=== PATIENT | female | born 1955 | race Caucasian/White ===

== ENCOUNTER 2017-04-03 11:00 | Inpatient (IN) | payer BC ==
--- NOTE | 2017-06-13 16:43 | HP ---
HISTORY AND PHYSICAL: DATE OF ADMISSION/SURGERY: 06/19/17 DATE OF OFFICE VISIT: 06/13/17 SURGEON: Uzma Galindo MD * (DICTATED BY PATO CARTER) PROCEDURE: Left total knee arthroplasty. CHIEF COMPLAINT: Left knee pain. HISTORY OF PRESENT ILLNESS: Ms. Starr is a 62-year-old female with complaints of left knee pain secondary to advanced osteoarthritis. She has failed conservative management and has elected to proceed with left total knee arthroplasty, which is scheduled for 06/19/[address] Galindo. PAST MEDICAL HISTORY: Hypertension and diabetes. PAST SURGICAL HISTORY: Hammertoe repair, bladder sling with cystocele repair, D and C, tonsillectomy. CURRENT MEDICATIONS: 1. Losartan potassium 50 mg daily. 2. Metformin 500 mg twice daily. ALLERGIES: To ELAVIL. FAMILY HISTORY: Heart disease, diabetes, cancer. SOCIAL HISTORY: She is a 62-year-old female. She does not smoke. She does not use drugs or tobacco. Uses occasional alcohol. REVIEW OF SYSTEMS: A complete 14-point review of systems was reviewed, was positive for diabetes and occasional palpitations. She denies history of DVT, PE, or anesthesia problems. PHYSICAL EXAMINATION GENERAL: Well developed, well nourished, in no acute distress. She is alert and oriented x3, pleasant mood, and appropriate affect. VITAL SIGNS: She stands 5 feet 1 inch tall, weighs 182 pounds. Her blood pressure 127/78, heart rate 75. HEENT: Normocephalic, atraumatic. NECK: Supple. No palpable lymph nodes. PULMONARY: Lungs are clear to auscultation bilaterally. CARDIAC: Regular rate and rhythm. Strong S1 and S2. ABDOMEN: Soft, nontender, and nondistended. MUSCULOSKELETAL: Left lower extremity, the skin is intact. There are no open wounds or abrasions. There is a moderate joint effusion. 5 to 135 degrees of flexion. 2+ dorsalis pedis pulses. Her lower extremity muscle group strengths are intact at 5/5. NEUROLOGIC: Cranial nerves II through XII are intact. ASSESSMENT AND PLAN: Ms. Starr is a 62-year-old female with complaints of left knee pain secondary to advanced osteoarthritis. She has failed conservative management and has elected to proceed with left knee arthroscopy, which is scheduled for 06/19/[address] Galindo discussed the risks and benefits of the surgery at today's visit and all of her questions were answered. Coumadin and Percocet were sent to her pharmacy for postoperative pain control and DVT prophylaxis. She will see Dr. Galindo back 2 weeks after the surgery. PAOT CARTER [id number]/[facility] #: [id number] ANILA
[2017-06-18] MEDS ORDERED: Buffered Lidocaine 0.9% SYRIN* 5 ML/SYR SYRINGE INTRADERM ONE (11:25)
[2017-06-19] MEDS ORDERED: Famotidine IV* 10 MG/ML 2 ML (20 mg) IV ONE (06:00)
[2017-06-19] MEDS ORDERED: Gabapentin CAP(*) 300 MG PO ONE (08:28)
[2017-06-19] MEDS ORDERED: Famotidine IV* 10 MG/ML 2 ML (20 mg) ONE (08:49)
[2017-06-19] MEDS ORDERED: ceFAZolin 2 GM PREMIX (*) 2 GM/50 ML BAG IVPB ONE (08:49)
[2017-06-19] MEDS ORDERED: Gabapentin CAP(*) 300 MG ONE (08:49)
[2017-06-19] MEDS ORDERED: Buffered Lidocaine 0.9% SYRIN* 5 ML/SYR SYRINGE ONE (08:49)
[2017-06-19] MEDS ORDERED: Midazolam* 1 MG/ML 5 ML VIAL (5 MG) ONE (09:17)
[2017-06-19] MEDS ORDERED: fentaNYL* 50 MCG/ML 2 ML VIAL (100 MCG VIAL) ONE (09:17)
[2017-06-19] MEDS ORDERED: Lidocaine 2% PF * 5 ML VIAL ONE ×2 (09:19→11:23)
[2017-06-19] MEDS ORDERED: Ondansetron INJ* 2 MG/ML VIAL ONE (09:19)
[2017-06-19] MEDS ORDERED: Propofol* 10 MG/ML 20 ML BTL IV PUSH ONE ×2 (09:19→13:25)
[2017-06-19] MEDS ORDERED: Dexamethasone IV* 4 MG/ML 1 ML (4 MG) ONE (09:19)
[2017-06-19] MEDS ORDERED: DiMENhydriNATE IV* 50 MG/ML VIAL ONE ×2 (09:19→16:03)
[2017-06-19] MEDS ORDERED: Ketorolac INJ* 30 MG/ML 1 ML VIAL ONE (09:19)
[2017-06-19] MEDS ORDERED: KETAMINE HCL* 50 MG/ML 10 ML VIAL ONE (09:19)
[2017-06-19] MEDS ORDERED: ROPIVACAINE 5 MG/ML 30 ML BTL (0.5%) ONE (11:23)
[2017-06-19] MEDS ORDERED: Morphine PF AMP (0.5MG/ML)* 5 MG/10 ML AMP ONE (11:45)
[2017-06-19] MEDS ORDERED: Midazolam* 1 MG/ML 2 ML VIAL (2 MG) ONE (11:46)
[2017-06-19] MEDS ORDERED: Glycopyrrolate IV* 0.2 MG/ML 1 ML VIAL ONE (12:06)
[2017-06-19] MEDS ORDERED: oxyCODONE/Acetamin 5/325 MG* TAB PO PRN ×2 (12:55→12:57)
[2017-06-19] MEDS ORDERED: HYDROmorphone INJ* 1 MG/ML CARPUJECT SYRINGE IV PRN (12:55)
[2017-06-19] MEDS ORDERED: DiMENhydriNATE IV* 50 MG/ML VIAL IV PUSH PRN (12:55)
[2017-06-19] MEDS ORDERED: Gabapentin CAP(*) 100 MG PO ONE (12:56)
[2017-06-19] MEDS ORDERED: Naloxone* 0.4 MG/ML 1 ML VIAL IV PRN (12:57)
[2017-06-19] MEDS ORDERED: Nalbuphine* 20 MG/ML 1 ML VIAL IV PRN (12:57)
[2017-06-19] MEDS ORDERED: Ondansetron INJ* 2 MG/ML VIAL IV PRN (12:57)
[2017-06-19] MEDS ORDERED: Polyethylene Glycol 3350* 17 GM PACKET PO PRN (13:05)
[2017-06-19] MEDS ORDERED: Magnesium Hydroxide LIQ* 30 ML UDC PO PRN (13:05)
[2017-06-19] MEDS ORDERED: Bisacodyl SUPP* 10 MG SUPP PR PRN (13:05)
[2017-06-19] MEDS ORDERED: Acetaminophen TAB* 325 MG PO PRN (13:05)
[2017-06-19] MEDS ORDERED: Cyclobenzaprine TAB* 10 MG PO PRN (13:09)
[2017-06-19] MEDS ORDERED: Gabapentin CAP(*) 100 MG ONE (14:46)
--- NOTE | 2017-06-19 15:36 | RAD ---
Indication: Left total knee replacement. 2 views of left knee demonstrates bipolar knee arthroplasty in satisfactory position. Drainage catheter in place. IMPRESSION: Left knee replacement in satisfactory position.
--- NOTE | 2017-06-19 15:49 | CONSULT ---
Subjective Date of Service: 06/19/17 Interval History: 62 yo F with hx of HTN, DM, BESSIE on CPAP seen in PACU after L TKA. Has had ongoing/worsening arthritis and underwent TKA by Dr. Galindo. Otherwise has been stable lately, BPs and DM has been well controlled. She does state that she had a tick bite about 1 week ago. She says she believes it was likely a deer tick and thinks it was attached for about 24 hours. Has not noted a target lesion around the bite, just a small amount of erythema. Family History: Findings - DM, cancer, CAD Social History: Findings - No smoking, occasional EtOH, rare MJ Past Medical History: Findings - HTN, DM, BESSIE Review of Systems - Measurements Intake and Output: Intake and Output Last 24 Hours 06/17/17 06/18/17 06/19/17 06/20/17 06:59 06:59 06:59 06:59 Intake Total 1800 Output Total 150 Balance 1650 Weight 83.461 kg Intake: IV Fluids 1800 LR 1800 Output: Estimated Blood Loss 150 - Review of Systems Constitutional Symptoms: Negative: Fever Dermatology: Positive: Other - tick bite HEENT: Positive: Normal Eyes: Positive: Normal Thyroid: Positive: Normal Pulmonary: Positive: Normal Cardiology: Positive: Normal Gastroenterology: Positive: Normal Musculoskeletal: Positive: Joint Pain Endocrinology: Positive: Normal Neurology: Positive: Normal Psychiatry: Positive: Normal Objective Active Medications: Acetaminophen (Tylenol Tab*) 650 mg PO Q4H PRN PRN Reason: PAIN OR TEMPERATURE Alprazolam (Xanax Tab*) 0.125 mg PO Q6H PRN PRN Reason: ANXIETY Bisacodyl (Dulcolax Supp*) 10 mg [place] DAILY PRN PRN Reason: constipation Cyclobenzaprine HCl (Flexeril Tab*) 10 mg PO BID PRN PRN Reason: LEG CRAMPS Dimenhydrinate (Dramamine Iv*) 12.5 mg IV PUSH ONCE PRN PRN Reason: NAUSEA/VOMITING Stop: 06/19/17 12:56 Diphenhydramine HCl (Benadryl Iv*) 12.5 mg IV Q6H PRN PRN Reason: PRURITIS Docusate Sodium (Colace Cap*) 100 mg PO BID TOPHER Enoxaparin Sodium (Lovenox(*)) 40 mg SUBCUT Q24H TOPHER Famotidine (Pepcid Iv*) 20 mg IV ONCE ONE Stop: 06/19/17 06:01 Last Admin: 06/19/17 10:09 Dose: 20 mg Gabapentin (Neurontin Cap(*)) 300 mg PO ONCE ONE Stop: 06/19/17 08:29 Last Admin: 06/19/17 09:35 Dose: 300 mg Gabapentin (Neurontin Cap(*)) 100 mg PO ONCE ONE Stop: 06/19/17 12:57 Last Admin: 06/19/17 15:16 Dose: 100 mg Hydromorphone HCl (Dilaudid Inj*) 0.2 mg IV Q5M PRN PRN Reason: PAIN - SEVERE Stop: 06/19/17 13:16 Lactated Ringer's (Lactated Ringers 1000 Ml Bag*) 1,000 mls @ 125 mls/hr IV PER RATE [facility] Last Admin: 06/19/17 10:09 Dose: 125 mls/hr Cefazolin Sodium 1 gm/ Sodium (Chloride) 50 mls @ 200 mls/hr IVPB Q8H [facility] Stop: 06/20/17 06:14 Lactated Ringer's (Lactated Ringers 1000 Ml Bag*) 1,000 mls @ 100 mls/hr IV PER RATE [facility] Ibuprofen (Motrin Tab*) 600 mg PO Q6H [facility] Lactulose (Lactulose*) 30 ml PO Q6H PRN PRN Reason: constipation Lidocaine/Sodium Bicarbonate (Buffered Lidocaine 0.9% Syrin*) 0.2 ml INTRADERM ONCE ONE Stop: 06/18/17 11:26 Last Admin: 06/19/17 10:09 Dose: 0.2 ml Magnesium Hydroxide (Milk Of Magnesia Liq*) 30 ml PO Q6H PRN PRN Reason: constipation Metformin HCl (Glucophage*) 500 mg PO QAM [facility] Morphine Sulfate (Morphine Inj (Syringe)*) 2 mg IV Q2H PRN PRN Reason: PAIN Nalbuphine HCl (Nubain*) 5 mg IV Q6H PRN PRN Reason: pruritis Naloxone HCl (Narcan*) 0.08 mg IV Q2M PRN PRN Reason: respiratory depression Ondansetron HCl (Zofran Inj*) 4 mg IV Q6H PRN PRN Reason: Nausea/Vomiting Ondansetron HCl (Zofran Inj*) 4 mg IV Q6H PRN PRN Reason: nausea Ondansetron HCl (Zofran Tab*) 4 mg PO Q6H PRN PRN Reason: NAUSEA Oxycodone HCl (Roxycodone Tab*) 10 mg PO Q4H PRN PRN Reason: SEVERE PAIN Oxycodone/Acetaminophen (Percocet 5/325 Tab*) 1 tab PO ONCE PRN PRN Reason: PAIN - MODERATE Stop: 06/20/17 12:56 Oxycodone/Acetaminophen (Percocet 5/325 Tab*) 1 tab PO Q4H PRN PRN Reason: Moderate Pain Oxycodone/Acetaminophen (Percocet 5/325 Tab*) 1 tab PO Q3H PRN PRN Reason: PAIN - MODERATE Oxycodone/Acetaminophen (Percocet 5/325 Tab*) 2 tab PO Q3H PRN PRN Reason: PAIN - MODERATE Polyethylene Glycol/Electrolytes (Miralax*) 17 gm PO DAILY PRN PRN Reason: Constipation Warfarin Sodium (Coumadin Tab(*)) 6 mg PO ONCE@1700 ONE PRN Reason: Protocol Stop: 06/19/17 17:01 Vital Signs 06/19/17 06/19/17 06/19/17 09:17 14:35 14:40 Temperature 97.0 F 97.3 F Pulse Rate 71 73 73 Respiratory 16 16 14 Rate Blood Pressure 130/78 101/65 94/46 (mmHg) O2 Sat by Pulse 98 96 100 Oximetry 06/19/17 06/19/17 06/19/17 14:45 15:00 15:15 Temperature Pulse Rate 64 61 64 Respiratory 16 18 16 Rate Blood Pressure 97/68 97/67 97/71 (mmHg) O2 Sat by Pulse 97 98 100 Oximetry 06/19/17 15:30 Temperature Pulse Rate 59 Respiratory 16 Rate Blood Pressure 111/75 (mmHg) O2 Sat by Pulse 99 Oximetry Oxygen Devices in Use Now: Nasal Cannula Appearance: Middle-aged F, laying in bed in NAD Eyes: No Scleral Icterus Ears/Nose/Mouth/Throat: - - Dry MM Neck: NL Appearance and Movements; NL JVP Respiratory: Symmetrical Chest Expansion and Respiratory Effort, - - Some mild ronchi in bases B/L Cardiovascular: NL Sounds; No Murmurs; No JVD, RRR Abdominal: NL Sounds; No Tenderness; No Distention Lymphatic: No Cervical Adenopathy Extremities: No Edema, - - L knee with dressing in place Skin: - - Small bite tc on R hip, 2-3 mm surrounding erythema, no target lesion Neurological: Alert and Oriented x 3 Lines/Tubes/Other Access: Clean, Dry and Intact Tavarez Assessment/Plan - Billing 62 yo F with hx of HTN, DM, BESSIE s/p L TKA by Dr. Galindo on 06/19/17 1) S/P L TKA - management as per Ortho - coumadin ordered 2) Tick Bite - spoke briefly with Dr. Brown. No further work-up needed at this time, can f /u with PCP regarding serologies in the upcoming weeks 3) HTN - BPs soft in PACU, hold AM Losartan for now 4) DM - well controlled, HbA1c < 6% - continue home Metformin 5) BESSIE - CPAP qhs 6) DVT PPx - Lovenox/Coumadin Thank you for this consult, we will continue to follow
[2017-06-19] MEDS: Ibuprofen TAB* 600 MG PO SCH ×2 (15:52→18:37)
[2017-06-19] MEDS ORDERED: Warfarin TAB(*) 6 MG PO ONE (17:00)
[2017-06-19] MEDS: ceFAZolin 1 GM VIAL(*) 1 GM in NS 0.9% 50 ML* 50 ML IVPB SCH (19:40)
[2017-06-19] MEDS: Docusate CAP* 100 MG PO SCH (20:54)
[2017-06-20] MEDS: Ibuprofen TAB* 600 MG PO SCH (00:51)
[2017-06-20] MEDS: ceFAZolin 1 GM VIAL(*) 1 GM in NS 0.9% 50 ML* 50 ML IVPB SCH ×2 (03:21→11:39)
[2017-06-20] MEDS ORDERED: oxyCODONE/Acetamin 5/325 MG* TAB PO PRN (04:48)
[2017-06-20] MEDS ORDERED: Morphine INJ* 2 MG/ML 1 ML SYRINGE (TWO MG - NEW SYRINGE VERSION) IV PRN (04:48)
[2017-06-20] MEDS ORDERED: Ondansetron TAB* 4 MG PO PRN (04:48)
--- NOTE | 2017-06-20 04:58 | OP ---
OPERATIVE REPORT: DATE OF OPERATION: 06/19/17 DATE OF : 57 ATTENDING SURGEON: Uzma Galindo MD PLANING MACHINE OPERATOR: PATO Higuera Carl did help throughout the procedure with preparation of the leg, wound retraction, nikolay pulation of the knee, and wound closure. ANESTHESIOLOGIST: Dr. Cobos. ANESTHESIA: Spinal. PRE-OP DIAGNOSIS: Severe end-stage degenerative osteoarthritis of the left knee joint. POST-OP DIAGNOSIS: Severe end-stage degenerative osteoarthritis of the left knee joint. OPERATIVE PROCEDURE: Left total knee arthroplasty. BRIEF HISTORY/INDICATIONS: Ms. Starr is a 62-year-old female with years of increasingly severe le ft knee pain. She failed conservative treatment with anti- inflammatories, pain medications, intraa rticular injections, and physical therapy. Due to decreased quality of life and continued pain, she elected to undergo left total knee arthroplasty. Informed consent was obtained from the patient. She understood the risks of the procedure, included , but were not limited to bleeding, infection, damage to nearby structures, continued pain, need for further surgery, intraoperative fracture, nerve palsy, hardware failure or loosening, knee stiffnes s, loss of motion, stroke, heart attack, blood clot, and . She wished to proceed. TOURNIQUET TIME: 49 minutes. COMPLICATIONS: None. ESTIMATED BLOOD LOSS: 200 cc. SPECIMENS: Bone and cartilage from the left knee joint sent to Pathology. HARDWARE USED: This is cemented [employer] total knee hardware. Two packages of Simplex bone cement. For the femur, a size 5 left posterior stabilized Oxinium femoral component. For the tibi a, size 4 left tibial baseplate. For the insert, a 9-mm posterior stabilized articular insert size 3-4. For the patella, 32 mm 3-peg all-poly patella. INTRAOPERATIVE FINDINGS: Intraoperatively, the patient was noted to have tricompartmental degenerat connie osteoarthritis with full thickness cartilage loss. She had extensive osteophyte formation. She had 15 degree flexion contracture to begin the case. DESCRIPTION OF PROCEDURE: Ms. Starr was identified in the preanesthesia unit. Her left lower extr emity was marked as the correct operative side. Informed consent was signed and placed in the chart . The patient was taken to the operating room and placed under spinal anesthesia. A Tavarez catheter was placed. Tourniquet was placed on the left thigh. Left lower extremity was prepped and draped in the usual sterile fashion. Preop time-out was made to correctly identify the patient's side and site. Appropriate perioperative antibiotics were given within 1 hour of incision. Tourniquet was inflated until the tourniquet time for this procedure was 49 minutes. A midline inci luke of 12-cm was made with a 10 blade. This was carried down to the extensor mechanism. A new 10 blade was used to make a standard medial parapatellar arthrotomy. Electrocautery was used to subper iosteally elevate soft tissue of the superomedial tibia to the mid sagittal plane. The knee was flex ed up. There was no ACL or anterior horn of the lateral meniscus. A drill was used to enter the dis ladarius femur. Intramedullary distal femoral cutting guide was pinned on the distal femur. Oscillating saw was used to make the distal femoral cut. External rotational guide was pinned on the distal fem ur. Distal femur was sized to a size 5. Size 5 multi-cutting jig was pinned on the distal femur. Oscillating saw was used to make the appropriate 4 chamfer cuts. The PCL was completely released an d the tibia was subluxed anteriorly. Extramedullary tibial cutting guide was pinned on the proximal tibia. Oscillating saw was used to m norma a proximal tibial cut perpendicular to the mechanical axis of the tibia. The bone was carefully removed. The knee was brought out into full extension. The spacer block had excellent fit with th e knee in full extension. Medial and lateral ligaments were well balanced. Flexion and extension ga ps were well balanced. The knee was flexed up. Tibial tray and drop lily once again confirmed satisfactory proximal tibial cut. Lamina sound art instructor was placed both medially and laterally. Any remaining meniscus was carefully removed using electrocautery. Posterior osteophytes were removed using curved osteotome and curette . A size 5 left femoral trial was impacted on to the distal femur and had good fit. The box for the po sterior stabilized implant was prepared using a reamer and box cut osteotome. Trial size 4 tibia an d 9-mm insert trial was placed and the knee was taken through a range of motion. The knee had full extension to 130 degrees of flexion. Patellofemoral tracking was satisfactory. The patella was everted. A 9-mm subpatellar bone and cartilage was carefully removed using an oscil lating saw. The patella was sized to a size 32. The 3 peg holes were drilled through the size 32 g uide. A 32 trial patella was placed and the knee was taken through a range of motion. There was sa tisfactory patellofemoral tracking. All trials were carefully removed. The tibia was subluxed anteriorly and sized to a size 4. Proxim al tibia was prepared using a size 4 keel punch. All bony cut surfaces were copiously irrigated wit h sterile saline and dried. Final implants were cemented into place, starting with the tibia, follo wed by the femur, and lastly the patella. A 9-mm insert trial was placed and the knee was taken out into full extension. Tourniquet was turned down at 49 minutes. The knee was copiously irrigated w ith sterile saline. Electrocautery was used to obtain meticulous hemostasis. Once the cement had fully cured, the insert trial was removed. Any excess cement was carefully marcus daniella from around the implants and capsule. Final insert chosen was a 9-mm size 3-4 posterior stabili zed articular insert. This was locked into position on the tibial tray without difficulty. Stabili ty of the insert was checked and rechecked and noted to be stable. The extensor mechanism was close d using interrupted #1 Vicryls over a medium Hemovac drain. The rest of the incision was closed in a layered fashion using 0 and 2-0 Vicryls. Skin was closed using running 3-0 nylon suture. Sterile Xeroform, 4x4s, and Webril were used to cover the incision. Rhett wrap and cold pack were placed ove r this. The patient's anesthesia was reversed without difficulty. She was taken to the PACU in stab le condition. Intended weightbearing will be weightbearing as tolerated. Intended DVT prophylaxis will be Coumadin with a Lovenox bridge. [id number]/[facility] #: [id number]
[2017-06-20] MEDS: diPHENhydraMINE IV* 50 MG/ML 1 ml VIAL (BENADRYL) IV PRN ×2 (05:45→11:28)
[2017-06-20 07:51] LABS: Hematocrit 31 % (35-47); Hemoglobin 10.8 g/dl (12.0-16.0)
[2017-06-20 08:11] LABS: BUN/Creatinine Ratio 19.1 (8-20); Calcium 8.2 mg/dL (8.6-10.3); EGFR African American 113.1 (>60); Potassium 3.6 mmol/L (3.5-5.0)
[2017-06-20] MEDS: oxyCODONE TAB* 5 MG TAB PO PRN ×2 (08:17→15:15)
[2017-06-20] MEDS: metFORMIN* 500 MG TAB PO SCH (08:18)
[2017-06-20] MEDS: Docusate CAP* 100 MG PO SCH ×2 (08:18→21:34)
[2017-06-20] MEDS ORDERED: Losartan TAB* 25 MG PO SCH (09:00)
--- NOTE | 2017-06-20 09:57 | PN ---
Progress Note - Progress Note Date of Service: 06/20/17 SOAP: Subjective: []Patient seen OOB in chair, pain well managed. Denies c/o SOB, CP or dizziness. Objective: [] Vital Signs Temp 98.3 F 06/20/17 08:10 Pulse 82 06/20/17 08:10 Resp 16 06/20/17 08:17 BP 108/57 06/20/17 08:10 Pulse Ox 92 06/20/17 08:10 Intake & Output 06/19/17 06/20/17 06/20/17 18:59 06:59 18:59 Intake Total 2100 1410 1785 Output Total 500 1075 550 Balance 1683 193 5922 Weight 184 lb Intake: IV Fluids 2100 850 1370 LR 2100 850 1370 IVPB 55 LR 55 Oral 560 360 Output: Tavarez 350 1075 550 Estimated Blood Loss 150 Other: # Bowel Movements 0 Laboratory Results - last 24 hr 06/19/17 06/20/17 06/20/17 15:23 07:26 07:26 Hgb 10.8 L Hct 31 L INR (Anticoag Therapy) 1.06 Sodium Potassium Chloride Carbon Dioxide Anion Gap BUN Creatinine Est GFR ( Amer) Est GFR (Non-Af Amer) BUN/Creatinine Ratio Glucose POC Glucose (mg/dL) 124 H Calcium 06/20/17 07:26 Hgb Hct INR (Anticoag Therapy) Sodium 137 Potassium 3.6 Chloride 104 Carbon Dioxide 27 Anion Gap 6 BUN 13 Creatinine 0.68 Est GFR ( Amer) 113.1 Est GFR (Non-Af Amer) 88.0 BUN/Creatinine Ratio 19.1 Glucose 164 H POC Glucose (mg/dL) Calcium 8.2 L Left knee dressing dry and intact hemovac drain discontinued this am by Dr. Galindo without complication calf NT and soft NVI distally, +DF/PF left ankle Assessment: []s/p Left total knee arthroplasty POD #1 Plan: []PT/OT WBAT LLE Coumadin with Lovenox bridge- 8mg today Home with VNS in 1-2 days
[2017-06-20] MEDS: oxyCODONE/Acetamin 5/325 MG* TAB PO PRN ×3 (11:32→21:28)
--- NOTE | 2017-06-20 12:02 | PN ---
Subjective Date of Service: 06/20/17 Interval History: Patient seen this morning. Feeling "OK" overall, pain in the knee just now, got pain medications, trying to stay ahead. Hypotensive overnight, responded to IVF , denies light-headedness/dizziness. Good PO intake. Tavarez removed, no urine yet , passing gas, no BM. Reports slight numbness/tingling in L toes Family History: Unchanged from Admission Social History: Unchanged from Admission Past Medical History: Unchanged from Admission Objective Active Medications: Acetaminophen (Tylenol Tab*) 650 mg PO Q4H PRN Alprazolam (Xanax Tab*) 0.125 mg PO Q6H PRN Bisacodyl (Dulcolax Supp*) 10 mg [place] DAILY PRN Cyclobenzaprine HCl (Flexeril Tab*) 10 mg PO BID PRN Diphenhydramine HCl (Benadryl Iv*) 12.5 mg IV Q6H PRN Docusate Sodium (Colace Cap*) 100 mg PO BID TOPEHR Enoxaparin Sodium (Lovenox(*)) 40 mg SUBCUT Q24H [facility]HER Cefazolin Sodium 1 gm/ Sodium (Chloride) 50 mls @ 200 mls/hr IVPB Q8H [facility] Lactated Ringer's (Lactated Ringers 1000 Ml Bag*) 1,000 mls @ 100 mls/hr IV PER RATE [facility] Lactulose (Lactulose*) 30 ml PO Q6H PRN Magnesium Hydroxide (Milk Of Magnesia Liq*) 30 ml PO Q6H PRN Metformin HCl (Glucophage*) 500 mg PO QAM [facility] Morphine Sulfate (Morphine Inj (Syringe)*) 2 mg IV Q2H PRN Ondansetron HCl (Zofran Inj*) 4 mg IV Q6H PRN Ondansetron HCl (Zofran Tab*) 4 mg PO Q6H PRN Oxycodone HCl (Roxycodone Tab*) 10 mg PO Q4H PRN Oxycodone/Acetaminophen (Percocet 5/325 Tab*) 1 tab PO ONCE PRN Oxycodone/Acetaminophen (Percocet 5/325 Tab*) 1 tab PO Q3H PRN Oxycodone/Acetaminophen (Percocet 5/325 Tab*) 2 tab PO Q3H PRN Polyethylene Glycol/Electrolytes (Miralax*) 17 gm PO DAILY PRN Warfarin Sodium (Coumadin Tab(*)) 8 mg PO ONCE@1700 ONE Vital Signs 06/19/17 06/19/17 06/19/17 14:35 14:40 14:45 Temperature 97.3 F Pulse Rate 73 73 64 Respiratory 16 14 16 Rate Blood Pressure 101/65 94/46 97/68 (mmHg) O2 Sat by Pulse 96 100 97 Oximetry 06/20/17 06/20/17 06/20/17 05:38 05:45 05:55 Temperature Pulse Rate Respiratory 18 16 Rate Blood Pressure 84/54 (mmHg) O2 Sat by Pulse Oximetry 06/20/17 06/20/17 06/20/17 08:10 08:17 10:17 Temperature 98.3 F Pulse Rate 82 Respiratory 16 16 18 Rate Blood Pressure 108/57 (mmHg) O2 Sat by Pulse 92 Oximetry Oxygen Devices in Use Now: None Appearance: Middle-aged, obese F, laying in bed in NAD Eyes: No Scleral Icterus Ears/Nose/Mouth/Throat: Mucous Membranes Moist Neck: NL Appearance and Movements; NL JVP Respiratory: Symmetrical Chest Expansion and Respiratory Effort, Clear to Auscultation Cardiovascular: NL Sounds; No Murmurs; No JVD, RRR Abdominal: NL Sounds; No Tenderness; No Distention Lymphatic: No Cervical Adenopathy Extremities: - - L knee with dressing/cryounit in place Skin: No Rash or Ulcers Neurological: Alert and Oriented x 3 Result Diagrams: 06/20/17 07:26 06/20/17 07:26 Assess/Plan/Problems-Billing 62 yo F with hx of HTN, DM, BESSIE s/p L TKA by Dr. Galindo on 06/19/17 1) S/P L TKA - management as per Ortho - coumadin ordered 2) Tick Bite - spoke briefly with Dr. Brown. No further work-up needed at this time, can f /u with PCP regarding serologies in the upcoming weeks 3) HTN - BPs soft overnight, improved with IVF/bolus - hold home anti-HTN meds, continue IVF as ordered 4) DM - well controlled, HbA1c < 6% - continue home Metformin 5) BESSIE - CPAP qhs 6) DVT PPx - Lovenox/Coumadin Thank you for this consult, we will continue to follow
[2017-06-20] MEDS: Enoxaparin(*) 40 MG/0.4 ML SYR SUBCUT SCH (13:00)
[2017-06-20] MEDS ORDERED: Warfarin TAB(*) 4 MG PO ONE (17:00)
[2017-06-20] MEDS: Ondansetron INJ* 2 MG/ML VIAL IV PRN (19:09)
[2017-06-21] MEDS: oxyCODONE/Acetamin 5/325 MG* TAB PO PRN ×2 (01:47→08:10)
[2017-06-21] MEDS: metFORMIN* 500 MG TAB PO SCH (08:09)
[2017-06-21] MEDS: Docusate CAP* 100 MG PO SCH ×2 (08:10→21:10)
[2017-06-21] MEDS ORDERED: Calcium Carbonate CHEW TAB* 500 MG (TUMS) PO PRN (08:16)
[2017-06-21] MEDS ORDERED: Calcium Carbonate CHEW TAB* 500 MG (TUMS) ONE (08:22)
[2017-06-21] MEDS: ALPRAZolam TAB* 0.25 MG PO PRN (08:53)
[2017-06-21 09:16] LABS: Hematocrit 32 % (35-47); Hemoglobin 11.4 g/dl (12.0-16.0)
[2017-06-21] MEDS: Ondansetron INJ* 2 MG/ML VIAL IV PRN (09:22)
--- NOTE | 2017-06-21 10:55 | PN ---
Subjective Date of Service: 06/21/17 Interval History: pt is mildly nauseated today, otherwise n o complaints Family History: Unchanged from Admission Social History: Unchanged from Admission Past Medical History: Unchanged from Admission Objective Active Medications: Acetaminophen (Tylenol Tab*) 650 mg PO Q4H PRN PRN Reason: PAIN OR TEMPERATURE Alprazolam (Xanax Tab*) 0.125 mg PO Q6H PRN PRN Reason: ANXIETY Last Admin: 06/21/17 08:53 Dose: 0.125 mg Bisacodyl (Dulcolax Supp*) 10 mg NE DAILY PRN PRN Reason: constipation Calcium Carbonate (Tums*) 500 mg PO Q4H PRN PRN Reason: HEARTBURN Cyclobenzaprine HCl (Flexeril Tab*) 10 mg PO BID PRN PRN Reason: LEG CRAMPS Diphenhydramine HCl (Benadryl Iv*) 12.5 mg IV Q6H PRN PRN Reason: PRURITIS Last Admin: 06/20/17 11:28 Dose: 12.5 mg Docusate Sodium (Colace Cap*) 100 mg PO BID [facility] Last Admin: 06/21/17 08:10 Dose: 100 mg Enoxaparin Sodium (Lovenox(*)) 40 mg SUBCUT Q24H [facility] Last Admin: 06/20/17 13:00 Dose: 40 mg Lactated Ringer's (Lactated Ringers 1000 Ml Bag*) 1,000 mls @ 100 mls/hr IV PER RATE [facility] Last Admin: 06/20/17 19:00 Dose: 100 mls/hr Lactulose (Lactulose*) 30 ml PO Q6H PRN PRN Reason: constipation Last Admin: 06/21/17 08:10 Dose: 30 ml Magnesium Hydroxide (Milk Of Magnesia Liq*) 30 ml PO Q6H PRN PRN Reason: constipation Metformin HCl (Glucophage*) 500 mg PO QAM [facility] Last Admin: 06/21/17 08:09 Dose: 500 mg Morphine Sulfate (Morphine Inj (Syringe)*) 2 mg IV Q2H PRN PRN Reason: PAIN Ondansetron HCl (Zofran Inj*) 4 mg IV Q6H PRN PRN Reason: nausea Last Admin: 06/21/17 09:22 Dose: 4 mg Ondansetron HCl (Zofran Tab*) 4 mg PO Q6H PRN PRN Reason: NAUSEA Oxycodone HCl (Roxycodone Tab*) 10 mg PO Q4H PRN PRN Reason: SEVERE PAIN Last Admin: 06/20/17 15:15 Dose: 10 mg Polyethylene Glycol/Electrolytes (Miralax*) 17 gm PO DAILY PRN PRN Reason: Constipation Tramadol HCl (Ultram*) 50 mg PO Q6H PRN PRN Reason: mild to moderate pain Vital Signs 06/20/17 06/20/17 06/20/17 11:18 11:28 11:32 Temperature 98.6 F Pulse Rate 79 Respiratory 16 18 18 Rate Blood Pressure 146/70 (mmHg) O2 Sat by Pulse 99 Oximetry 06/20/17 06/20/17 06/20/17 12:28 13:32 15:15 Temperature Pulse Rate Respiratory 18 18 18 Rate Blood Pressure (mmHg) O2 Sat by Pulse Oximetry 06/20/17 06/20/17 06/20/17 15:26 17:11 17:14 Temperature 99.4 F Pulse Rate 85 Respiratory 16 18 18 Rate Blood Pressure 160/70 (mmHg) O2 Sat by Pulse 94 Oximetry 06/20/17 06/20/17 06/20/17 19:01 19:14 19:46 Temperature Pulse Rate 86 Respiratory 20 20 Rate Blood Pressure 163/82 (mmHg) O2 Sat by Pulse 95 Oximetry 06/20/17 06/20/17 06/20/17 19:57 21:28 23:28 Temperature 98.1 F Pulse Rate Respiratory 18 18 Rate Blood Pressure (mmHg) O2 Sat by Pulse Oximetry 06/20/17 06/21/17 06/21/17 23:58 01:47 03:47 Temperature 98.5 F Pulse Rate 86 Respiratory 16 18 18 Rate Blood Pressure 160/81 (mmHg) O2 Sat by Pulse 99 Oximetry 06/21/17 06/21/17 06/21/17 03:55 05:30 07:35 Temperature 98.6 F 98.3 F Pulse Rate 91 85 Respiratory 16 20 Rate Blood Pressure 141/65 147/77 (mmHg) O2 Sat by Pulse 93 99 97 Oximetry 06/21/17 06/21/17 06/21/17 07:55 08:10 08:49 Temperature Pulse Rate 85 Respiratory 20 18 Rate Blood Pressure 157/75 (mmHg) O2 Sat by Pulse 97 100 Oximetry 06/21/17 06/21/17 08:53 09:45 Temperature Pulse Rate Respiratory 20 18 Rate Blood Pressure (mmHg) O2 Sat by Pulse Oximetry Oxygen Devices in Use Now: None Appearance: 62 yo F in nAD, aAOx3 Eyes: No Scleral Icterus, PERRLA Ears/Nose/Mouth/Throat: NL Teeth, Lips, Gums, Mucous Membranes Moist Neck: NL Appearance and Movements; NL JVP, Trachea Midline Respiratory: Symmetrical Chest Expansion and Respiratory Effort, Clear to Auscultation Cardiovascular: NL Sounds; No Murmurs; No JVD, RRR Abdominal: NL Sounds; No Tenderness; No Distention Lymphatic: No Cervical Adenopathy Extremities: No Edema, No Clubbing, Cyanosis Skin: No Nodules or Sclerosis, - - left post op knee in cryo unit, dressings not removed Neurological: Alert and Oriented x 3, NL Muscle Strength and Tone Result Diagrams: 06/21/17 08:34 06/20/17 07:26 Assess/Plan/Problems-Billing 62 yo F with hx of HTN, DM, BESSIE s/p L TKA by Dr. Galindo on 06/19/17 1) S/P L TKA - management as per Ortho - coumadin ordered 2) Tick Bite - will obtain Lyme serology today, to f/u when it comes back with PCP 3) HTN - SBP in 150's today-will restart Cozaar - hold home anti-HTN meds, continue IVF as ordered 4) DM - well controlled, HbA1c < 6% - continue home Metformin 5) BESSIE - CPAP qhs 6) DVT PPx - Lovenox/Coumadin Thank you for this consult, will sign off. Please call if needed
[2017-06-21] MEDS: Losartan TAB* 25 MG PO SCH (11:31)
--- NOTE | 2017-06-21 11:55 | PN ---
Progress Note - Progress Note Date of Service: 06/21/17 SOAP: Subjective: []Patient seen at bedside, feeling nauseated. Mentioned to Dr. Lindsey earlier that she had a recent tick bite so lyme titer has been ordered. Hopes she will be able to go home tomorrow. Objective: [] Vital Signs Temp 98.3 F 06/21/17 07:35 Pulse 85 06/21/17 08:49 Resp 16 06/21/17 10:53 BP 157/75 06/21/17 08:49 Pulse Ox 100 06/21/17 08:49 Intake & Output 06/20/17 06/21/17 06/21/17 18:59 06:59 18:59 Intake Total 3482 2594 700 Output Total 1000 1550 500 Balance 2482 1044 200 Intake: IV Fluids 2092 1264 LR 2092 1264 IVPB 110 LR 110 Oral 1280 1330 700 Output: Urine 450 1550 [place] 550 Emesis 500 Other: # Bowel Movements 0 Laboratory Results - last 24 hr 06/21/17 06/21/17 08:34 08:34 Hgb 11.4 L Hct 32 L INR (Anticoag Therapy) 1.02 Left knee dressing changed this am by Dr. Galindo calf NT and soft sensation intact distally +DF/PF left ankle Assessment: []s/p Left total knee arthroplasty POD #2 Plan: []PT/OT WBAT LLE discontinue coumadin, Lovenox in house, home on ASA 325 mg BID probable discharge home tomorrow if medically stable
[2017-06-21] MEDS: traMADol TAB* 50 MG PO PRN ×3 (12:09→23:45)
[2017-06-21] MEDS: Enoxaparin(*) 40 MG/0.4 ML SYR SUBCUT SCH (13:59)
[2017-06-22] MEDS: ALPRAZolam TAB* 0.25 MG PO PRN (04:09)
[2017-06-22] MEDS: traMADol TAB* 50 MG PO PRN ×2 (05:48→11:59)
[2017-06-22 06:52] LABS: Hematocrit 33 % (35-47); Hemoglobin 11.6 g/dl (12.0-16.0)
[2017-06-22] MEDS: Docusate CAP* 100 MG PO SCH (09:24)
[2017-06-22] MEDS: Losartan TAB* 25 MG PO SCH (09:24)
[2017-06-22] MEDS: metFORMIN* 500 MG TAB PO SCH (09:24)
--- NOTE | 2017-06-22 09:36 | PN ---
Progress Note - Progress Note Date of Service: 06/22/17 SOAP: Subjective: []Patient was seen out of bed in chair. She reports she is doing well today. Pain is currently well controlled with tramadol though she did have breakthrough pain last night for which she discussed a home order for Dilaudid with Dr. Galindo. Bowel movement was reported. Objective: [] Laboratory Last Values Hgb 11.6 g/dl (12.0-16.0) L 06/22/17 06:46 Hct 33 % (35-47) L 06/22/17 06:46 INR (Anticoag Therapy) 1.10 (0.89-1.11) 06/22/17 06:45 Sodium 137 mmol/L (133-145) 06/20/17 07:26 Potassium 3.6 mmol/L (3.5-5.0) 06/20/17 07:26 Chloride 104 mmol/L (101-111) 06/20/17 07:26 Carbon Dioxide 27 mmol/L (22-32) 06/20/17 07:26 Anion Gap 6 mmol/L (2-11) 06/20/17 07:26 BUN 13 mg/dL (6-24) 06/20/17 07:26 Creatinine 0.68 mg/dL (0.51-0.95) 06/20/17 07:26 Est GFR ( Amer) 113.1 (>60) 06/20/17 07:26 Est GFR (Non-Af Amer) 88.0 (>60) 06/20/17 07:26 BUN/Creatinine Ratio 19.1 (8-20) 06/20/17 07:26 Glucose 164 mg/dL (70-100) H 06/20/17 07:26 POC Glucose (mg/dL) 124 mg/dL (70-100) H 06/19/17 15:23 Calcium 8.2 mg/dL (8.6-10.3) L 06/20/17 07:26 Vital Signs Temp 98.8 F 06/22/17 07:37 Pulse 86 06/22/17 07:37 Resp 12 06/22/17 07:48 BP 124/66 06/22/17 07:37 Pulse Ox 91 06/22/17 07:37 Intake & Output 06/21/17 06/22/17 06/22/17 18:59 06:59 18:59 Intake Total 1100 Output Total 1825 1575 550 Balance -725 -1575 -550 Intake: Oral 1100 Output: Urine 1325 1575 550 Emesis 500 Other: # Bowel Movements 0 General: Patient appears well, in no acute distress LLE: left knee dressed with LETITIA, clean and dry. Calf is soft without erythema, edema or tenderness. Sensation intact distally. + PF/DF Assessment: [] Left total knee arthroplasty POD#3 Plan: []Expected discharge home today WBAT LLE Anticoagulation: ASA 325mg BID Pain control: Tramadol 50mg Q 6 hours PRN. Dilaudid 2mg Q 6 hours for breakthrough pain.
[2017-06-22 12:53] VITALS: BP 140/75
[2017-06-22] MEDS: Enoxaparin(*) 40 MG/0.4 ML SYR SUBCUT SCH (13:29)
--- NOTE | 2017-06-23 02:59 | DS ---
DISCHARGE SUMMARY: DATE OF ADMISSION: 06/19/17 DATE OF DISCHARGE: 06/22/17 ATTENDING PHYSICIAN: Uzma Galindo MD* (dictated by PATO Reyna). ADMISSION DIAGNOSIS: Severe end-stage osteoarthritis of the left knee. DISCHARGE DIAGNOSIS: Severe end-stage osteoarthritis of the left knee. SURGERY PERFORMED: Left total knee arthroplasty. HOSPITAL COURSE: The patient is a 62-year-old female with increasingly severe left knee pain. She failed conservative management with anti-inflammatories, pain medications, intra-articular injections and physical therapy. She elected to proceed with surgical intervention and was taken to the operating room under the care of Dr. Uzma Galindo on the date of 06/19/17. She tolerated the procedure well and left the operating room in stable condition. Postoperatively , she progressed satisfactorily with her physical therapy and occupational goals. She did have some nausea and was transitioned to tramadol for pain. She had no other issues postoperatively and it was felt she was stable for discharge medically and orthopedically to home on the date of 06/22/17. CONDITION ON DISCHARGE: Temperature 98.8, pulse 86, respiratory rate 18, O2 sat is 91%, blood pressure 124/66, hemoglobin 11.6, hematocrit 33%. Her incision is healing without evidence of infection. Her calf is nontender and soft. Her neurovascular status is intact. PLAN: Discharge to home with VNS. She will continue to bear weight as tolerated on the left lower extremity. She will use aspirin 325 mg p.o. b.i.d. for DVT prophylaxis. She will continue with Colace while on narcotic pain medications. Prescriptions for tramadol and a prescription of Dilaudid 2 mg was called in for breakthrough pain. She will follow up with Dr. Galindo as scheduled in roughly 10 to 14 days. If she has any problems with increased pain , any noted drainage, increased swelling, calf swelling or tenderness, fevers, chills, the office will be contacted prior to her scheduled appointment. PATO REYNA [id number]/[facility] #: [id number] MTDD
== END 2017-06-22 15:45 | disposition home health service (06) | DRG 302 ==
LOC: AA 06-19 08:44 → SSU 06-19 16:38
PROVIDERS: ADMIT Orthopaedic Surgery Adult Reconstructive Orthopaedic Surgery; ATTEND Orthopaedic Surgery Adult Reconstructive Orthopaedic Surgery
PROC: 0SRD0J9 Replacement of Left Knee Joint with Synthetic Substitute, Cemented, Open Approach (ICD-10-PCS; principal; 2017-06-19 11:00)
DX: M17.12 Unilateral primary osteoarthritis, left knee (principal); I95.9 Hypotension, unspecified; I10 Essential (primary) hypertension; E11.9 Type 2 diabetes mellitus without complications; E66.9 Obesity, unspecified; G47.33 Obstructive sleep apnea (adult) (pediatric); T14.8XXA Other injury of unspecified body region, initial encounter; R11.0 Nausea; F12.90 Cannabis use, unspecified, uncomplicated; F41.9 Anxiety disorder, unspecified; M25.762 Osteophyte, left knee; Z88.8 Allergy status to other drugs, medicaments and biological substances; Z82.49 Family history of ischemic heart disease and other diseases of the circulatory system; Z83.3 Family history of diabetes mellitus; Z80.9 Family history of malignant neoplasm, unspecified; Z72.89 Other problems related to lifestyle; Z68.33 Body mass index [BMI] 33.0-33.9, adult
CPT/HCPCS: 36415; 80048; 85014; 85018; 85610; 86618; 88305; 88311; A9270-GY; C1776; J0690; J1100; J1200; J1240; J1650; J1885; J2250; J2405; J2704; J2795; J3010

== ENCOUNTER 2019-06-17 05:33 | Day surgery (SDC) | payer BC ==
[~2019-06-17 05:33] MED LIST: Buffered Lidocaine 1% SYRIN* 1 ML/SYRINGE INTRADERM ONE
[2019-06-17] MEDS ORDERED: Lactated Ringers 1000 ML Bag* 1,000 ML IV SCH (06:00)
[2019-06-17] MEDS ORDERED: Famotidine IV* 10 MG/ML 2 ML (20 mg) IV ONE (06:00)
[2019-06-17] MEDS ORDERED: Metoclopramide IV* 5 MG/ML 2 ML VIAL IV SLOW PU ONE (06:00)
[2019-06-17] MEDS ORDERED: Metoclopramide IV* 5 MG/ML 2 ML VIAL ONE (06:06)
[2019-06-17] MEDS ORDERED: Famotidine IV* 10 MG/ML 2 ML (20 mg) ONE (06:07)
[2019-06-17] MEDS ORDERED: ceFAZolin 2 GM PREMIX in ORs 2 GM/50 ML BAG ONE (06:07)
[2019-06-17] MEDS ORDERED: EPINEPHRINE 1 MG/ML 1 ML VIAL ONE (07:08)
[2019-06-17] MEDS ORDERED: methylPREDNISolone ACETATE 80* 80 MG/ML 1 ML VIAL ONE (07:08)
[2019-06-17] MEDS ORDERED: ROPIVACAINE 5 MG/ML 30 ML BTL (0.5%) ONE (07:09)
[2019-06-17] MEDS ORDERED: Midazolam* 1 MG/ML 2 ML VIAL (2 MG) ONE (07:17)
[2019-06-17] MEDS ORDERED: fentaNYL* 50 MCG/ML 2 ML VIAL (100 MCG VIAL) ONE (07:17)
[2019-06-17] MEDS ORDERED: Propofol* 10 MG/ML 20 ML BTL ONE (07:53)
[2019-06-17] MEDS ORDERED: Chloroprocaine 2%* 20 ML VIAL ONE (07:53)
[2019-06-17] MEDS ORDERED: Phenylephrine 10 MG/ML VIAL* 1 ML VIAL ONE (07:53)
[2019-06-17] MEDS ORDERED: Ketorolac INJ* 30 MG/ML 1 ML VIAL IV PRN (08:50)
[2019-06-17] MEDS ORDERED: fentaNYL* 50 MCG/ML 2 ML VIAL (100 MCG VIAL) IV PRN (08:50)
[2019-06-17] MEDS ORDERED: Naloxone* 0.4 MG/ML 1 ML VIAL IV PRN (08:50)
[2019-06-17] MEDS ORDERED: Ondansetron INJ* 2 MG/ML VIAL IV PRN (08:50)
[2019-06-17 09:34] VITALS: BP 133/80
[2019-06-17] MEDS ORDERED: traMADol TAB* 50 MG ONE (10:09)
--- NOTE | 2019-06-18 01:21 | OP ---
DATE OF OPERATION: 06/17/19 - [facility] DATE OF : 57 ATTENDING SURGEON: Uzma Galindo MD. DAG COATER: PATO Ruth. Mr. eMhta did help throughout the procedure with preparation of the leg, wound retraction, manipulation of the knee, and wound closure. ANESTHESIOLOGIST: Dr. Lin. ANESTHESIA: Spinal. PRE-OP DIAGNOSES: Left total knee arthroplasty, arthrofibrosis, stiffness, and pain. POST-OP DIAGNOSES: Left total knee arthroplasty, arthrofibrosis, stiffness, and pain. OPERATIVE PROCEDURE: Left knee arthroscopic scar tissue debridement, lysis of adhesions. COMPLICATIONS: None. SPECIMEN: 10 cc of clear yellow fluid was sent to Microbiology for cell count, gram-stain, culture and sensitivities. ESTIMATED BLOOD LOSS: Less than 25 cc. BRIEF HISTORY/INDICATIONS: Ms. Starr is a 64-year-old female who had uncomplicated left total knee arthroplasty in 2017. Over the last 2 years she has had gains in her range of motion and losses. Over the last 6 months she lost approximately 20 degrees of motion in the knee and became unhappy with pain and stiffness. Her labs and physical exam did not indicate any sign of infection. She did wish to have a lysis of adhesions arthroscopically. We discussed the risks and benefits of the procedure. She understood the risks included, but were not limited to, bleeding, infection, damage to nearby structures, damage of the implant, need for further surgery, continued stiffness without any range of motion gains, stroke, heart attack, blood clot, and . She wished to proceed. INTRAOPERATIVE FINDINGS: Intraoperatively the patient was noted to have some benign appearing scar tissue in both medial and lateral gutter as well as the anterior joint line. No significant large amount of scar tissue in the suprapatellar region. No evidence of infection. She had clear yellow joint fluid. Some patellar baja was noted. DESCRIPTION OF PROCEDURE: Ms. Starr was identified in the preanesthesia unit. Her left lower extremity was marked as the correct operative side. Informed consent was signed and placed in the chart. The patient was taken to the operating room and placed under anesthesia. Left lower extremity was prepped and draped in the usual sterile fashion. Preop time-out was made to correctly identify the patient, side, and site. Appropriate perioperative antibiotics were given within 1 hour of incision. An 18-gauge needle was used to aspirate 10 cc of clear yellow joint fluid. This was sent to microbiology lab for evaluation. Lateral portal incision, 0.5 cm in length, was made with a 10-blade and carried down through the capsule. Trocar was carefully introduced into the knee joint. As soon as water and light sources were turned on, there was visualization of the suprapatellar pouch. Suprapatellar pouch had no significant scar tissue. Both the medial and lateral gutter did have some scar tissue. Anterior joint line had a significant amount of synovitis in the scar tissue. Under direct visualization , a medial portal incision was made. A shaver was introduced. Significant amount of scar tissue was excised from the anterior joint line. The implants were well visualized and showed no obvious abnormality. Patellar tracking was without a significant abnormality, although there was noted to be some patellar baja, which seemed to impinge with full flexion. Some scar tissue and adhesion were debrided and excised in the medial and lateral gutter. Both the shaver and radiofrequency ablation wand were used to excise scar tissue. Throughout the procedure, the knee joint was copiously irrigated with approximately 12 L of sterile saline. The instruments were removed. Incisions were closed using 3-0 nylon suture. Xeroform, 4x4s, and Webril were used to cover the incision. Rhett wrap and cold pack were placed over this. The patient's anesthesia was reversed without difficulty. She was taken to the PACU in stable condition. She will have physical therapy immediately and be weightbearing as tolerated. She will work on aggressive range of motion. She will have aspirin for DVT prophylaxis. [id number]/[facility] #: [id number] [facility]ITALCherry
== END 2019-06-17 10:20 | disposition home or self-care (01) ==
LOC: OR 05:33
PROVIDERS: ATTEND Orthopaedic Surgery Adult Reconstructive Orthopaedic Surgery
DX: M24.662 Ankylosis, left knee (principal); Z96.652 Presence of left artificial knee joint; Z68.35 Body mass index [BMI] 35.0-35.9, adult; E11.9 Type 2 diabetes mellitus without complications; Z79.84 Long term (current) use of oral hypoglycemic drugs; G47.33 Obstructive sleep apnea (adult) (pediatric); R00.2 Palpitations
CPT/HCPCS: 87070; 87073; 87102; 87205; 87640; 87641; A9270-GY; J0690; J1040; J2250; J2400; J2704; J2765; J2795; J3010